=== PATIENT | male | born 1995 ===

== ENCOUNTER 2019-12-17 22:12 | Emergency (ER) | payer OTHER ==
[~2019-12-17] VITALS: Ht 180.3 cm; Wt 78.0 kg
[2019-12-17] MEDS ORDERED: ZIPRASIDONE 20 MG INJ IM ONE ×2 (22:30→22:36)
--- NOTE | 2019-12-17 23:17 | NUR ---
PT GAVE VERBAL CONSENT FOR ED TO GIVE INFORMATION TO MOTHER ALEXANDRU BELLA [phone]
[2019-12-17 23:21] LABS: BASOPHILS # (AUTO) 0.04 x10^3/uL (0-0.1); BASOPHILS % (AUTO) 0 % (0-1); EOSINOPHILS % (AUTO) 0 % (1-7); LYMPHOCYTES # (AUTO) 1.59 x10^3/uL (1-3.4); LYMPHOCYTES % (AUTO) 13 % (22-44); MD NO; MEAN CORPUSCULAR HEMOGLOBIN 31.4 pg (27.5-34.5); MEAN CORPUSCULAR HGB CONC 33.6 g/dL (33.2-36.2); MEAN CORPUSCULAR VOLUME 93.4 fL (81-97); MEAN PLATELET VOLUME 8.4 fL (7.4-10.4); MONOCYTES # (AUTO) 0.77 x10^3/uL (0.2-0.8); MONOCYTES % (AUTO) 6 % (2-9); NEUTROPHILS # (AUTO) 10.08 x10^3/uL (1.8-6.8); NEUTROPHILS % (AUTO) 81 % (42-75); PLATELET COUNT 269 x10^3/uL (130-400); RED BLOOD COUNT 4.99 x10^6/uL (4.38-5.82); RED CELL DISTRIBUTION WIDTH 14.9 % (9.4-14.8)
--- NOTE | 2019-12-17 23:31 | NUR ---
PER СВЕТЛАНА "PT WAS AGITATED AT [facility] WITH [facility] [facility] 911 CALLS ABOUT PT. PT WAS LOCATED WALKING ON THE FREEWAY AND BROUGHT TO ED" PT WAS AGGITATED IN ROOM AND REFUSED TO GIVE UP HIS CELL PHONE. PT AGREED TO IM ANGELO SHOT AND PROVIDED HIS ARM FOR SHOT WITHOUT INCIDENT. PT PRIOR TO SHOT GAVE VERBAL CONSENT TO GIVE INFORMATION TO HIS MOTHER AND PROVIDED HER PHONE #.
[2019-12-17 23:34] LABS: ALANINE AMINOTRANSFERASE 21 U/L (12-78); ALBUMIN 4.7 g/dL (3.4-5.0); ANION GAP 11 mmol/L (5-15); CALCIUM 9.1 mg/dL (8.5-10.1); CHLORIDE 106 mmol/L (98-107); CREATININE 1.37 mg/dL (0.7-1.3)
[2019-12-17 23:44] LABS: ALKALINE PHOSPHATASE 71 U/L (45-117); BILIRUBIN,TOTAL 2.4 mg/dL (0.2-1.0); TOTAL PROTEIN 8.7 g/dL (6.4-8.2)
[2019-12-17 23:46] LABS: SALICYLATE LEVEL 2.5 mg/dL (2.8-20.0)
--- NOTE | 2019-12-18 01:16 | NUR ---
Report received from LUIS DANIEL Bragg. This RN to assume care.
--- NOTE | 2019-12-18 02:02 | NUR ---
Patient sleeping in rney. Respirations even and unlabored. Room secured, belongings locked in cabinet, sitter outside.
--- NOTE | 2019-12-18 03:10 | NUR ---
Patient sleeping in rney. Respirations even and unlabored. Room secured, belongings locked in cabinet, sitter outside.
--- NOTE | 2019-12-18 04:33 | NUR ---
Patient sleeping in rney. Respirations even and unlabored. Room secured, belongings locked in cabinet, sitter outside.
--- NOTE | 2019-12-18 04:40 | NUR ---
IDRIS SINGER, SISTER,
--- NOTE | 2019-12-18 04:47 | NUR ---
PACKET FAXED TO [facility]
--- NOTE | 2019-12-18 05:20 | NUR ---
Patient up to BR then back to bed. Respirations even and unlabored. Room secured, belongings locked in cabinet, sitter outside.
[2019-12-18 06:12] LABS: AMPHETAMINE SCREEN, URINE Positive (Negative); BARBITURATE SCREEN, URINE Negative (Negative); BENZODIAZEPINE SCREEN, URINE Negative (Negative); CANNABINOID SCREEN, URINE Positive (Negative); COCAINE SCREEN, URINE Negative (Negative); METHADONE SCREEN, URINE Negative (Negative); OPIATE SCREEN, URINE Negative (Negative)
--- NOTE | 2019-12-18 06:13 | NUR ---
Patient sleeping in rney. Respirations even and unlabored. Room secured, belongings locked in cabinet, sitter outside.
--- NOTE | 2019-12-18 07:26 | NUR ---
PT RESTING ON GURNEY AT THIS TIME, VISIBLE CHEST RISE AND FALL NOTED. MEAL TRAY ORDERED PER NOC RN, SITTER IN PLACE, SI PRECAUTIONS OBSERVED.
[2019-12-18 08:50] VITALS: BP 117/77
--- NOTE | 2019-12-18 11:29 | NUR ---
PT GIVEN WATER WATER PER REQUEST. NO OTHER NEEDS NOTED. MEAL TRAY ORDERED.
--- NOTE | 2019-12-18 12:23 | NUR ---
CALLED [facility] TO LET THEM KNOW THEY WOULD NOT NEED TO REVIEW PT FOR PLACEMENT TO THEIR FACILITY.
--- NOTE | 2019-12-18 12:50 | NUR ---
[facility] DC'D PER SIMONA GREEN. PT PROVIDED WITH TAXI VOUCHER.
== END 2019-12-18 12:51 | disposition home or self-care (01) ==
LOC: ED 22:58
DX: R45.851 Suicidal ideations (principal); F32.1 Major depressive disorder, single episode, moderate; F15.150 Other stimulant abuse with stimulant-induced psychotic disorder with delusions; R00.0 Tachycardia, unspecified; F17.210 Nicotine dependence, cigarettes, uncomplicated
CPT/HCPCS: 36415; 80053; 80307; 84443; 85025; 96372; 99283; J3486